=== PATIENT | male | born 1965 | race Caucasian/White ===

== ENCOUNTER → 2017-04-23 | Day surgery (SDC) | payer OTHER ==
[~2017-04-23] VITALS: Ht 198.1 cm; Wt 104.3 kg
[~2017-04-23] MED LIST: 0.9% Sodium Chloride 1,000 ML IV PRN; Sodium Chloride LOK Flush 10 mL Syringe IV PRN; [UNRECOGNIZED DRUG - REMARK]; fentaNYL-PF 50 mCg/mL 2 mL Inj IVPUSH PRN
[2017-04-23 13:58] VITALS: BP 132/82; PULSE 80; RESP 17; O2SAT 100
--- NOTE | 2017-04-23 15:06 | PCM.ENDCOL ---
Colonoscopy Date of Service: Apr 23, 2017 Physician Ankit Santa MD Pre Procedure Diagnosis: Screening Post Procedure Dx & Findings: Hemorrhoids Procedure Colonoscopy PROCEDURE IN DETAIL: Prep adequate Withdrawal time 9 minutes After unremarkable rectal examination the Olympus video colonoscope was inserted patient's anal canal and was advanced to cecum. Landmarks were identified including the ileocecal valve and appendiceal orifice. Scope was withdrawn systematically. Visualized colonic mucosa showed healthy shiny mucosa with normal healthy-appearing vasculature. In the rectum retroflexion was done which showed hemorrhoids. Anal canal was inspected carefully on the way out and hemorrhoids noted. Impression No first-degree family history of colon cancer or polyp. Hemorrhoids Recommendation Repeat colonoscopy in 10 years Presedation Assessment Risks and Benefits Informed consent was obtained from the patient after all risks and benefits including but not limited to drug reaction, infection, pain, bleeding, perforation, as well as alternatives were discussed. Patient monitoring Continuous pulse oximetry, cardiac monitoring, blood pressure monitoring, IV access, and oxygen at 2L per nasal cannula. Periprocedural Fentanyl: Fentanyl 200mcg Incrementally Midazolam: Midazolam 10mg Incrementally Complications There were no periprocedural complications identified. Post Procedure Plan Post Procedure Recommendations 1. Restrict activities today. 2. Resume normal activities in the morning. 3. Resume medications. 4. Patient informed of normal post procedure side effects as bloating, drowsiness, blood streaking in the stool. 5. average risk CRCS. If colon polyps come back as: -Hyperplastic- can repeat colonoscopy in 10 years -Tubular adenoma- repeat colonoscopy in 5 years -Tubulovillous/villous adenoma- repeat colonoscopy in 3 years -If any dysplasia- return to clinic as soon as possible 6. Please don't hesitate to call me with any questions. Ankit Santa MD Apr 23, 2017 15:06
[2017-04-23 15:11] VITALS: BP 118/69; PULSE 64; RESP 14; O2SAT 98
[2017-04-23 15:29] VITALS: BP 103/61; PULSE 58; RESP 12; O2SAT 96
[2017-04-23 15:38] VITALS: BP 117/80; PULSE 78; RESP 16; O2SAT 98
== END | disposition home or self-care (01) ==
LOC: END 00:39
PROVIDERS: ATTEND Internal Medicine
DX: Z12.11 Encounter for screening for malignant neoplasm of colon (principal); K64.8 Other hemorrhoids; Z80.0 Family history of malignant neoplasm of digestive organs
CPT/HCPCS: 45378; 99153; G0500; J2250; J3010; J7030